=== PATIENT | female | born 1995 ===

== ENCOUNTER 2022-08-04 11:01 | Outpatient (CLI) | payer OTHER | END 2022-08-04 12:27 | disposition home or self-care (01) | LOC: PRENATAL 11:01 | PROVIDERS: ATTEND Obstetrics & Gynecology Maternal & Fetal Medicine | DX: O35.9XX0 Maternal care for (suspected) fetal abnormality and damage, unspecified, not applicable or unspecified (principal); O35.3XX0 Maternal care for (suspected) damage to fetus from viral disease in mother, not applicable or unspecified; O26.879 Cervical shortening, unspecified trimester; Z3A.23 23 weeks gestation of pregnancy ==

== ENCOUNTER 2022-09-12 14:59 | Outpatient (CLI) | payer OTHER | END 2022-09-12 16:30 | disposition home or self-care (01) | LOC: PRENATAL 14:59 | PROVIDERS: ATTEND Obstetrics & Gynecology Maternal & Fetal Medicine | DX: Z23 Encounter for immunization (principal) ==

== ENCOUNTER 2022-10-26 10:34 | Outpatient (CLI) | payer OTHER | END 2022-10-26 12:14 | disposition home or self-care (01) | LOC: PRENATAL 10:34 | PROVIDERS: ATTEND Obstetrics & Gynecology Maternal & Fetal Medicine | DX: O26.849 Uterine size-date discrepancy, unspecified trimester (principal); O36.8199 Decreased fetal movements, unspecified trimester, other fetus; Z3A.35 35 weeks gestation of pregnancy ==